=== PATIENT | female | born 1965 | race Hispanic/Latino ===

== ENCOUNTER → 2018-07-05 | Day surgery (SDC) | payer BC ==
--- NOTE | 2018-06-28 11:21 | Diagnostic Imaging Report ---
EXAMINATION: CHEST 2 VIEWS INDICATION: Pre-op COMPARISON: None FINDINGS: TUBES and LINES: None. LUNGS: Lungs are well inflated. Mild patchy bibasilar opacity, likely atelectasis. There is no evidence of pneumonia or pulmonary edema. PLEURA: No pleural effusion or pneumothorax. HEART AND MEDIASTINUM: The cardiomediastinal silhouette is unremarkable. BONES AND SOFT TISSUES: No acute osseous lesion. Soft tissues are unremarkable. UPPER ABDOMEN: No free air under the diaphragm. IMPRESSION: No acute radiographic abnormality. Signed by: Dr. Deanna López MD on 06/28/2018 11:18 AM
[2018-06-28 11:30] LABS: BASOPHILS # (AUTO) 0.1 (0.0-0.1); BASOPHILS % 0.4 % (0.0-1.0); EOSINOPHILS # (AUTO) 0.1 (0.0-0.4); EOSINOPHILS % 0.7 % (0.0-6.0); HEMOGLOBIN 15.8 g/dL (12.0-16.0); LYMPHOCYTES # (AUTO) 2.6 (1.0-3.2); MEAN CORPUSCULAR HGB CONC 33.6 g/dL (31-35); MEAN CORPUSCULAR VOLUME 92.3 fL (81-99); MONOCYTES # (AUTO) 0.5 (0.2-0.8); MONOCYTES % 4.1 % (4.4-11.3); NEUTROPHILS # (AUTO) 8.9 (2.1-6.9); NEUTROPHILS % 73.3 % (38.7-80.0); PLATELET COUNT 256 x10e3/uL (140-360); RED BLOOD COUNT 5.09 x10e6/uL (3.6-5.1); RED CELL DISTRIBUTION WIDTH 13.2 % (11.7-14.4)
[2018-06-28 11:57] LABS: ALANINE AMINOTRANSFERASE 51 IU/L (0-55); ALBUMIN 4.2 g/dL (3.5-5.0); ALBUMIN/GLOBULIN RATIO 1.1 (0.8-2.0); ALKALINE PHOSPHATASE 89 IU/L (40-150); BLOOD UREA NITROGEN 12 mg/dL (7-26); BUN/CREATININE RATIO 14 (6-25); CALCIUM 9.8 mg/dL (8.4-10.2); CARBON DIOXIDE 28 mmol/L (22-29); CHLORIDE 98 mmol/L (98-107); CREATININE, SERUM 0.87 mg/dL (0.57-1.11); EST GLOMERULAR FILTRATION RATE > 60 ML/MIN (60-); GLUCOSE 90 mg/dL (74-118); SODIUM 133 mmol/L (136-145)
[2018-06-28 11:59] LABS: CLARITY,URINE CLEAR (CLEAR); COLOR,URINE YELLOW (YELLOW); KETONES,URINE NEGATIVE (NEGATIVE); LEUKOCYTE ESTERASE ,URINE NEGATIVE (NEGATIVE); NITRITE,URINE NEGATIVE (NEGATIVE); PROTEIN,URINE DIPSTICK NEGATIVE (NEGATIVE)
[2018-06-28 12:00] LABS: BILIRUBIN,URINE NEGATIVE (NEGATIVE); URINE UROBILINOGEN 0.2 mg/dL (0.2 - 1)
[~2018-07-05] MED LIST: BUPIVACAINE 0.25%/EPI 30ML SDV INJ ONE; DEXAMETHASONE SOD PHOS INJ 4 MG/ML VIAL ONE; FENTANYL CITRATE/PF 100MCG/2 ML INJ ONE; GLYCOPYRROLATE INJ 1MG/ 5 ML SYR ONE; HYDROMORPHONE 2MG/ML 2 MG/ML ML ONE; LIDOCAINE HCL 2% LOCAL INJ 5 ML SDV VIAL INJ ONE; MIDAZOLAM HCL 2 MG/2 ML VIAL ONE; MULTIVITAMINS1 EAC7 PO; NEOSTIGMINE 5 MG/5ML SYR ONE; ONDANSETRON HCL INJ 2MG/ML 2ML 2 MG/ML VIAL ONE; PROPOFOL IV EMULSION 10 MG/ML 20 ML VIAL ONE; ROCURONIUM BROMIDE 10 MG/ML 5ML VIAL ONE; SEVOFLURANE INHAL SOLN 250 ML PEN BTL ONE
--- OUTSIDE RECORDS SUMMARY | 2018-07-05 09:37 | XMS REPORT ---
Author Author Bernardo Avila Organization eClinicalWorks Address Unknown Phone Unavailable Care Team Providers Care Supervisor Dried Yeast Name Role Phone Bernardo Avila CP Unavailable Allergies, Adverse Reactions, Alerts Substance Reaction Event Type N.K.D.A. Info Not Available Non Drug Allergy Encounters Encounter Location Date URINE [facility] May 03, [address] [facility] November 26, 2013 swelling in feet and legs [facility] November 15, 2013 Problems Problem Type Condition ICD-9 Code Onset Dates Condition Status Assessment Family hx of colon cancer V16.0 Active Assessment Smoker 305.1 Active Assessment Body Mass Index 32.0-32.9, adult V85.32 Active Assessment Family history of aortic valve disorder V17.49 Active Assessment Family history of breast cancer V16.3 Active Problem Family hx of colon cancer V16.0 Active Problem Family history of breast cancer V16.3 Active Problem Smoker 305.1 Active Assessment Edema 782.3 Active Assessment Hypertriglyceridemia 272.1 Active Problem DDD (degenerative disc disease) 722.6 Active Problem Hypertriglyceridemia 272.1 Active Medications Medication Code System Code Instructions Start Date End Date Status Dosage NO OTC meds taken Unknown 0 Active Unknown Social History Social History Element Qualifiers Date Reported children . 2 November 15, 2013 Tobacco Use: . Are you a: current smoker, How many packs per day? 1-2, How many years have you smoked? greater than 30 November 15, 2013 Use of recreational / street drugs? . Answer: No November 15, 2013 Do you have pets? . Status: No November 15, 2013 Marital Status: . November 15, 2013 Caffeine intake? . Status: Yes, What type: Soft Drinks November 15, 2013 Do you exercise? . Answer: No November 15, 2013 Do you drink alcohol? . Status: Yes, How often? 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 Avg Glu (eAG)(- mg/dL) 123 B-Type Natriuretic Peptide B-Type Natriuretic Peptide(-0.0-100.0 pg/mL) 8.0 TSH TSH(-0.450-4.500 uIU/mL) 1.700 CBC With Differential/Platelet MCHC(-31.5-35.7 g/dL) 32.1 MCH(-26.6-33.0 pg) 30.2 Platelets(-155-379 x10E3/uL) 253 RDW(-12.3-15.4 %) 14.0 Immature Granulocytes(-0-2 %) 0 Immature Grans (Abs)(-0.0-0.1 x10E3/uL) 0.0 Lymphs(-14-46 %) 27 Monocytes(-4-12 %) 6 Neutrophils(-40-74 %) 66 Neutrophils (Absolute)(-1.4-7.0 x10E3/uL) 4.7 Hematocrit(-34.0-46.6 %) 43.3 Lymphs (Absolute)(-0.7-3.1 x10E3/uL) 2.0 MCV(-79-97 fL) 94 RBC(-3.77-5.28 x10E6/uL) 4.61 Eos(-0-5 %) 1 Basos(-0-3 %) 0 Hemoglobin(-11.1-15.9 g/dL) 13.9 Baso (Absolute)(-0.0-0.2 x10E3/uL) 0.0 WBC(-3.4-10.8 x10E3/uL) 7.2 Monocytes(Absolute)(-0.1-0.9 x10E3/uL) 0.4 Eos (Absolute)(-0.0-0.4 x10E3/uL) 0.1 Urinalysis, Routine Protein(-Negative/Trace ) Negative WBC Esterase(-Negative ) Negative Appearance(-Clear ) Clear Urine-Color(-Yellow ) Yellow Occult Blood(-Negative ) 2+ Ketones(-Negative ) Negative Glucose(-Negative ) Negative Nitrite, Urine(-Negative ) Negative Microscopic Examination(- ) See below: WBC(-0 - 5 /hpf) 0-5 RBC(-0 - 2 /hpf) None seen pH(-5.0-7.5 ) 6.5 Specific [place](-1.005-1.030 ) 1.010 Bilirubin(-Negative ) Negative Urobilinogen,Semi-Qn(-0.0-1.9 mg/dL) 0.2 Bacteria(-None seen/Few ) Few Epithelial Cells (non renal)(-0 - 10 /hpf) 0-10 Mucus Threads(-Not Estab. ) Present Lipid Panel LDL Cholesterol Calc(-0-99 mg/dL) 128 VLDL Cholesterol Klaus(-5-40 mg/dL) 34 HDL Cholesterol(->39 mg/dL) 32 Triglycerides(-0-149 mg/dL) 168 Cholesterol, Total(-100-199 mg/dL) 194 Comp. Metabolic Panel (14) Creatinine, Serum(-0.57-1.00 mg/dL) 0.80 BUN(-6-24 mg/dL) 9 eGFR If Africn Am(- >59 mL/min/1.73) 100 eGFR If NonAfricn Am(- >59 mL/min/1.73) 87 Sodium, Serum(-134-144 mmol/L) 141 BUN/Creatinine Ratio(-9-23 ) 11 Chloride, Serum(-97-108 mmol/L) 104 Potassium, Serum(-3.5-5.2 mmol/L) 4.4 Carbon Dioxide, Total(-19-28 mmol/L) 25 Protein, Total, Serum(-6.0-8.5 g/dL) 6.9 Calcium, Serum(-8.7-10.2 mg/dL) 9.1 Globulin, Total(-1.5-4.5 g/dL) 2.7 Albumin, Serum(-3.5-5.5 g/dL) 4.2 Bilirubin, Total(-0.0-1.2 mg/dL) 0.2 Glucose, Serum(-65-99 mg/dL) 89 A/G Ratio(-1.1-2.5 ) 1.6 ALT (SGPT)(-0-32 IU/L) 20 Alkaline Phosphatase, S(-39-117 IU/L) 81 AST (SGOT)(-0-40 IU/L) 21 Summary Purpose eClinicalWorks Submission
--- OUTSIDE RECORDS SUMMARY | 2018-07-05 09:37 | XMS REPORT ---
Author Author John Avila Organization eClinicalWorks Address Unknown Phone Unavailable Care Team Providers Care All Source Intelligence Technician Name Role Phone John Avila CP Unavailable Encounters Encounter Location Date ECHO/JOHN [facility] November 19, 2013 URINE [facility] May 03, 2013 New Referral Request [facility] November 26, 2013 swelling in feet and legs [facility] November 15, 2013 Problems Problem Type Condition ICD-9 Code Onset Dates Condition Status Problem Family hx of colon cancer V16.0 Active Problem Family history of breast cancer V16.3 Active Problem Smoker 305.1 Active Assessment Edema 782.3 Active Problem DDD (degenerative disc disease) 722.6 Active Problem Hypertriglyceridemia 272.1 Active Social History Social History Element Qualifiers Date [...] November 15, 2013 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
--- OUTSIDE RECORDS SUMMARY | 2018-07-05 09:37 | XMS REPORT | Continuity of Care Document ---
Author Author [facility] Interface Address Unknown Phone Unavailable Problems Problem Status Onset Date Classification Date Reported Comments Source US ABDOMEN DX: MICRO HEMATURIA Active 05/31/2018 [facility] Encounter for screening mammogram for breast cancer Active Diagnosis 06/24/2018 [facility] Routine general medical examination at a health care facility Active Diagnosis 06/24/2018 [facility] High cholesterol Active Problem 06/30/2018 [facility] Gallstones Active Problem 06/30/2018 [facility] Prediabetes Active Problem 06/30/2018 [facility] Family history of bowel cancer Active Problem 06/30/2018 [facility] Disc narrowing Active Problem 06/30/2018 [facility] Family history of breast cancer Active Problem 06/30/2018 [facility] Tobacco use disorder Active Problem 06/30/2018 [facility] Microhematuria Active Diagnosis 06/30/2018 [facility] Encounter for screening colonoscopy Active Diagnosis 06/24/2018 [facility] Hypertriglyceridemia Active Problem 01/28/2014 [facility] UTI Active Diagnosis 05/07/2013 [facility] DDD Active Problem 01/28/2014 [facility] Bilateral low back pain without sciatica, unspecified chronicity Active Diagnosis 06/30/2018 [facility] Rib pain on right side Active Diagnosis 06/30/2018 [facility] Routine physicl lab exam Active Diagnosis 06/30/2018 [facility] Cough Active Diagnosis 06/30/2018 [facility] Family hx of colon cancer Active Problem 01/28/2014 [facility] Family history of breast cancer Active Problem 01/28/2014 [facility] Smoker Active Problem 01/28/2014 [facility] Edema Active Diagnosis 01/28/2014 [facility] Body Mass Index 32.0-32.9, adult Active Diagnosis 12/12/2013 [facility] Family history of aortic valve disorder Active Diagnosis 12/12/2013 [facility] Medications Medication Details Route Status Patient Instructions Ordering Provider Order Date Source Bromfed DM 10 ml Orally Active 30-2-10 MG/5ML Orally every 4 hrs prn Akshat Archuleta 05/31/2018 [facility] Flexeril 1 tablet Orally Active 10 mg Orally three times a day (tid) as needed (prn) Akshat Archuleta 05/31/2018 [facility] Levaquin 1 tablet Orally Active 500 mg Orally Once a day Oden Archuleta 05/31/2018 [facility] Cipro 1 tablet Orally Active 500 mg Orally every 12 hrs [place] 05/03/2013 [facility] NO OTC meds taken Unknown NA Active [facility] NO OTC meds taken not defined NA Active Akshat Archuleta [facility] NO OTC meds taken Unknown NA Active [facility] Allergies, Adverse Reactions, Alerts Substance Category Reaction Severity Reaction type Status Date Reported Comments Source N.K.D.A. Adverse Reaction Info Not Available Adverse Reaction Active 06/19/2018 [facility] Immunizations Immunization Date Given Site Status Last Updated Comments Source Results Order Name Results Value Reference Range Date Interpretation Comments Source Abdomen/Pelvis w/wo IV contrast CT Abdomen/Pelvis w/wo IV contrast CT EXAM: CT ABDOMEN AND PELVIS WITH AND WITHOUT CONTRAST UROGRAM DATE: 07/03/2018 14:15 ENGINE BUILDUP MECHANIC INDICATION: - hematuria ADDITIONAL INFORMATION: None. COMPARISON: None. TECHNIQUE: Volumetric CT of the abdomen and pelvis is acquired prior to and following the intravenous administration of contrast. Axial, coronal and sagittal images are provided. IV contrast: 100 mL Omnipaque 300 Enteric contrast: None. DLP: 2788 mGy-cm FINDINGS: Lines, tubes and hardware: None. Lower thorax: Coronary artery calcifications are present. Small 4 mm nonspecific nodule in the right middle lobe (series 2, image 11). Liver: Normal. Biliary tree: No intra- or extrahepatic biliary ductal dilation. Gallbladder: Gallstones identified. No inflammation. Pancreas: Normal. Spleen: Normal. Adrenals: Normal. Kidneys and ureters: 1.4 cm left renal cyst. No renal or ureteral stones are present. Bladder: Normal. Reproductive organs: Uterus and adnexa are unremarkable. Gastrointestinal tract: Stomach: Normal. Small bowel: Normal. Colon: Uninflamed diverticula. Appendix: Normal. Peritoneum, mesentery and retroperitoneum: No free air, ascites or loculated fluid. Lymph nodes: Normal. Vasculature: Aorta and branches: Vascular calcifications. IVC and veins: Normal. Portal vasculature: Normal. Bones: No acute abnormality. Age-related degenerative findings. Soft tissues: Normal. IMPRESSION: 1. Small left renal cyst. 2. Cholelithiasis without evidence of acute cholecystitis. 3. Aortic and coronary artery atherosclerotic disease. 4. Nonspecific 4 mm right middle lobe pulmonary nodule. No further follow-up is required. 07/03/2018 - - Read by: Francisco Shoemaker MD Dictated Date/time: 07/03/18 15:39 Electronically Signed by: Francisco Shoemaker MD 07/03/18 15:52 FINAL REPORT [facility] Abdomen complete US Abdomen complete US Exam: Abdomen complete US Clinical Indication: - microhematuria. Comparison: None. TECHNIQUE: Grayscale and limited color sonographic evaluation of the abdomen was performed with standard technique. FINDINGS: LIVER: The visualized liver shows normal contour. There is normal liver size, based on sonography. Diffuse heterogeneous increased echotexture of the liver parenchyma with posterior acoustic attenuation is consistent with fatty infiltration. The main portal vein is patent with hepatopedal flow. Main portal vein measures 0.7 cm in diameter. BILE DUCTS: The intrahepatic and extrahepatic bile ducts are not dilated with the common bile duct measuring 5 mm. The distal common bile duct is not well seen. GALLBLADDER: Multiple echogenic shadowing gallstones are present in the gallbladder. No significant gallbladder wall thickening or pericholecystic fluid. The academic success coordinator does not report a sonographic Cox's sign. PANCREAS: The visualized pancreas appears unremarkable. SPLEEN: The spleen is unremarkable and measures 12.3 cm. KIDNEYS: The right kidney measures 10.7 cm. The left kidney measures 12.1 cm. There is normal renal contour and morphology, with normal parenchymal echotexture. No echogenic foci/nephrolithiasis identified. There is no hydronephrosis. AORTA, COMMON ILIAC ARTERIES AND INFERIOR VENA CAVA: The visualized abdominal aorta, common iliac arteries and inferior vena cava appear unremarkable. ASCITES: There is no significant abdominal ascites. IMPRESSION: 1. Cholelithiasis without evidence of acute cholecystitis. 2. Hepatic steatosis. 3. Remainder of abdomen ultrasound is unremarkable. SL: [id number] 06/01/2018 - - Read by: Umesh Waller MD Dictated Date/time: 06/01/18 18:50 Electronically Signed by: Umesh Waller MD 06/01/18 18:52 FINAL REPORT [facility] Vital Signs Vital Sign Value Date Comments Source Weight 195 06/19/2018 [facility] Height 65 06/19/2018 [facility] Heart Rate 68 06/19/2018 [facility] Diastolic (mm Hg) 80 06/19/2018 [facility] Systolic (mm Hg) 140 06/19/2018 [facility] Weight 201 05/31/2018 [facility] Height 65 05/31/2018 [facility] Heart Rate 67 05/31/2018 [facility] Diastolic (mm Hg) 86 05/31/2018 [facility] Systolic (mm Hg) 130 05/31/2018 [facility] Weight 198 11/15/2013 [facility] Height 65 11/15/2013 [facility] Heart Rate 88 11/15/2013 [facility] Diastolic (mm Hg) 88 11/15/2013 [facility] Systolic (mm Hg) 142 11/15/2013 [facility] Weight 196 05/03/2013 [facility] Height 65 05/03/2013 [facility] Temperature Oral (F) 98.6 F 05/03/2013 [facility] Heart Rate 64 05/03/2013 [facility] Diastolic (mm Hg) 74 05/03/2013 [facility] Systolic (mm Hg) 126 05/03/2013 [facility] Encounters Location Location Details Encounter Type Encounter Number Reason For Visit Attending Provider ADM Date DC Date Status Source [facility] URINE [id number] 05/03/2013 05/03/2013 [facility] URINE [id number] 05/03/2013 05/03/2013 [facility] URINE [id number] 05/03/2013 05/03/2013 [facility] URINE [id number] 05/03/2013 05/03/2013 [facility] swelling in feet and legs [id number] 11/15/2013 11/15/2013 [facility] swelling in feet and legs [id number] 11/15/2013 11/15/2013 [facility] swelling in feet and legs [id number] 11/15/2013 11/15/2013 [facility] REGGIE/JOHN [id number] 11/19/2013 11/19/2013 [facility] New Referral Request [id number] 11/26/2013 11/26/2013 [facility] New Referral Request [id number] 11/26/2013 11/26/2013 [facility] New Referral Request [id number] 11/26/2013 11/26/2013 [facility] Procedures Procedure Code Date Perfomer Comments Source
--- OUTSIDE RECORDS SUMMARY | 2018-07-05 09:37 | XMS REPORT ---
Author Author Christina Blake [facility] eClinicalWorks Address Unknown Phone Unavailable Care Team Providers Care Meat Soaker Name Role Phone Christina Blake CP Unavailable Allergies, Adverse Reactions, Alerts Substance Reaction Event Type N.K.D.A. Info Not Available Non Drug Allergy Problems Problem Type Condition Code Onset Dates Condition Status Assessment Bilateral low back pain without sciatica, unspecified chronicity M54.5 Active Assessment Rib pain on right side R07.81 Active Assessment Microhematuria R31.29 Active Assessment Routine physicl lab exam Z00.00 Active Assessment Cough R05 Active Problem High cholesterol E78.00 Active Problem Gallstones K80.20 Active Problem Prediabetes R73.03 Active Problem Family history of bowel cancer Z80.0 Active Problem Disc narrowing M99.79 Active Problem Family history of breast cancer Z80.3 Active Problem Tobacco use disorder F17.200 Active Medications Medication Code System Code Instructions Start Date End Date Status Dosage Levaquin NDC 99839198167 500 mg Orally Once a day May 31, 2018 Jun 07, 2018 Active 1 tablet Bromfed DM NDC 90395317076 30-2-10 MG/5ML Orally every 4 hrs prn May 31, 2018 Jun 30, 2018 Active 10 ml NO OTC meds taken NDC 0 Active not defined Flexeril NDC 0 10 mg Orally three times a day (tid) as needed (prn) May 31, 2018 Jun 30, 2018 Active 1 tablet Vital Signs Date/Time: May 31, 2018 BMI 33.44 Index Weight 201 lbs Height 65 in Cardiac Monitoring Heart Rate 67 /min Blood Pressure Diastolic 86 mm Hg Blood Pressure Systolic 130 mm Hg Results Name Result Date Reference Range Unit Abnormality Flag TSH ----TSH 2.290 20180601 0.450-4.500 uIU/mL Hemoglobin A1c ----Hemoglobin A1c 5.9 20180601 4.8-5.6 % H Urine Culture, Routine ----Urine Culture, Routine Final report [id number] ----Result 1 No growth [id number] Comp. Metabolic Panel (14) ----Sodium 143 20180601 134-144 mmol/L ----BUN/Creatinine Ratio 15 20180601 9-23 ----Chloride 103 20180601 96-106 mmol/L ----Potassium 4.6 20180601 3.5-5.2 mmol/L ----Calcium 9.1 20180601 8.7-10.2 mg/dL ----Protein, Total 6.9 20180601 6.0-8.5 g/dL ----Carbon Dioxide, Total 25 20180601 20-29 mmol/L ----A/G Ratio 1.6 20180601 1.2-2.2 ----eGFR If NonAfricn Am 84 20180601 >59 mL/min/1.73 ----Bilirubin, Total 0.3 20180601 0.0-1.2 mg/dL ----eGFR If Africn Am 97 20180601 >59 mL/min/1.73 ----BUN 12 20180601 6-24 mg/dL ----Albumin 4.2 20180601 3.5-5.5 g/dL ----Globulin, Total 2.7 20180601 1.5-4.5 g/dL ----Creatinine 0.80 20180601 0.57-1.00 mg/dL ----ALT (SGPT) 26 20180601 0-32 IU/L ----Glucose 89 20180601 65-99 mg/dL ----Alkaline Phosphatase 101 20180601 39-117 IU/L ----AST (SGOT) 26 20180601 0-40 IU/L Ribs Unil 2 View- Right Xray Lumbar AP/LAT Xray Chest 2 views- Xray CBC With Differential/Platelet ----RDW 13.8 20180601 12.3-15.4 % ----MCHC 33.8 20180601 31.5-35.7 g/dL ----MCH 30.9 20180601 26.6-33.0 pg ----MCV 91 20180601 79-97 fL ----Hematocrit 42.3 20180601 34.0-46.6 % ----Hemoglobin 14.3 20180601 11.1-15.9 g/dL ----Immature Granulocytes 0 20180601 Not Estab. % ----RBC 4.63 20180601 3.77-5.28 x10E6/uL ----WBC 7.0 20180601 3.4-10.8 x10E3/uL ----Immature Grans (Abs) 0.0 20180601 0.0-0.1 x10E3/uL ----Eos (Absolute) 0.1 20180601 0.0-0.4 x10E3/uL ----Basos 0 20180601 Not Estab. % ----Baso (Absolute) 0.0 20180601 0.0-0.2 x10E3/uL ----Neutrophils (Absolute) 4.5 20180601 1.4-7.0 x10E3/uL ----Lymphs (Absolute) 1.9 20180601 0.7-3.1 x10E3/uL ----Monocytes(Absolute) 0.4 20180601 0.1-0.9 x10E3/uL ----Neutrophils 65 20180601 Not Estab. % ----Lymphs 27 20180601 Not Estab. % ----Monocytes 6 20180601 Not Estab. % ----Eos 2 20180601 Not Estab. % ----Platelets 224 20180601 150-379 x10E3/uL URINE AUTO W/O SCOPE ----Ketones neg 20180610 ----Blood mod++ 20180610 ----Urobilinogen 0.2 20180610 ----Protein neg 20180610 ----Nitrite neg 20180610 ----pH 6.0 20180610 ----Bili neg 20180610 ----Spec [place] 1.010 20180610 ----Turbidity clear 20180610 ----Glucose neg 20180610 ----Leuk Est neg 20180610 ----Color yellow 20180610 Lipid Panel ----HDL Cholesterol 35 32734028 >39 mg/dL L ----Triglycerides 194 77797786 0-149 mg/dL H ----LDL Cholesterol Calc 120 42421674 0-99 mg/dL H ----VLDL Cholesterol Klaus 39 20180601 5-40 mg/dL ----Cholesterol, Total 194 13585643 100-199 mg/dL Summary Purpose eClinicalWorks Submission
--- OUTSIDE RECORDS SUMMARY | 2018-07-05 09:37 | XMS REPORT ---
Author Author Donna You [facility] eClinicalWorks Address Unknown Phone Unavailable Care Team Providers Care Auto Mechanic Name Role Phone Donna You Unavailable Encounters Encounter Location Date URINE [facility] May 03, 2013 Problems Problem Type Condition ICD-9 Code Onset Dates Condition Status Problem Hypertriglyceridemia 272.1 Active Assessment UTI (lower urinary tract infection) 599.0 Active Problem DDD (degenerative disc disease) 722.6 Active Medications Medication Code System Code Instructions Start Date End Date Status Dosage Cipro ILC [address]-00 500 mg Orally every 12 hrs May 03, 2013 May 08, 2013 Active 1 tablet NO OTC meds taken MULTUM 15986 Active Unknown Social History Social History Element Qualifiers Date Reported children . 2 May 03, 2013 Tobacco Use: . Are you a: current smoker, How many packs per day? 1-2, How many years have you smoked? greater than 30 May 03, 2013 Marital Status: . 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
--- OUTSIDE RECORDS SUMMARY | 2018-07-05 09:37 | XMS REPORT ---
Author Author [facility] Address Unknown Phone Unavailable Care Team Providers Care Advanced Manager Name Role Phone Tay HOPKINS Unavailable Unavailable Problems This patient has no known problems. Allergies, Adverse Reactions, Alerts This patient has no known allergies or adverse reactions. Medications This patient has no known medications. Results Test Description Test Time Test Comments Text Results Atomic Results Result Comments CHEST 2 VIEWS 2018-06-28 11:14:00 [place] [id number] Patient Name: JAVED SUAREZ MR #: [id number] : 1965 Age/Sex: 53/F Req #: [id number] Adm Physician: Ordered by: KUSH HOPKINS MD Report #: [id number] Location: OR Room/Bed: Procedure: [id number] DX/CHEST 2 VIEWS Exam Date: 06/28/18 Exam Time: 1100 REPORT STATUS: Signed EXAMINATION: CHEST 2 VIEWS INDICATION: Pre-op COMPARISON: None FINDINGS: TUBES and LINES: None. LUNGS: Lungs are well inflated. Mild patchy bibasilar opacity, likely atelectasis. There is no evidence of pneumonia or pulmonary edema. PLEURA: No pleural effusion or pneumothorax. HEART AND MEDIASTINUM: The cardiomediastinal silhouette is unremarkable. BONES AND SOFT TISSUES: No acute osseous lesion. Soft tissues are unremarkable. UPPER ABDOMEN: No free air under the diaphragm. IMPRESSION: No acute radiographic abnormality. Signed by: Dr. Rui Ramirez MD on 06/28/2018 11:18 AM Dictated By: RUI RAMIREZ MD 111 Transcribed By: LURDES on 06/28/181117 COPY TO: KUSH HOPKINS MD
--- OUTSIDE RECORDS SUMMARY | 2018-07-05 09:37 | XMS REPORT | Summary of Care ---
Author Author KATHIE VÁSQEUZ D.O. Unknown Address Unknown Phone Unavailable Care Team Providers Care Ingot Buggy Operator Name Role Phone KATHIE VÁSQUEZ DO Itzel Unavailable Unavailable TANVIR CHAPARRO DO Unavailable Unavailable Functional Status Name Dates Details Functional status health issues are not documented Status: Name Dates Details Cognitive status health issues are not documented Status: Problems Name Dates Details Microhematuria (599.72, R31.29) Status: Active Urinary frequency (788.41, R35.0) Status: Active Urinary urgency (788.63, R39.15) Status: Active Medications Name Dates Details No Reported Medications R.N. Active Allergies and Adverse Reactions Name Dates Details No Known Allergies (Allergy) Status: Active Past Medical History Name Dates Details History of degenerative disc disease (V13.59, Z87.39) Status: Resolved History of Hypertriglyceridemia (272.1, E78.1) Status: Resolved History of vitamin D deficiency (V12.1, Z86.39) Status: Resolved Procedures Procedure Dates Details CT Abdomen/Pelvis w/wo contrast [id number] Date: 28-Jun-2018 History of Section Completed History of Cervical cryosurgery Completed History of Urethral dilation Completed Immunization Name Dates Details Immunizations not documented Family History Name Dates Details Family history of colon cancer (V16.0, Z80.0) Status: Active Family history of throat cancer (V16.0, Z80.0) Status: Active Family history of malignant neoplasm of vulva (V16.49, Z80.49) Status: Active Family history of malignant neoplasm of breast (V16.3, Z80.3) Status: Active Name Dates Details Family history of Aneurysm (442.9, I72.9) Status: Active Name Dates Details Family history of colon cancer (V16.0, Z80.0) Status: Active Name Dates Details Family history of colon cancer (V16.0, Z80.0) Status: Active Family history of malignant neoplasm of vulva (V16.49, Z80.49) Status: Active Family history of malignant neoplasm of breast (V16.3, Z80.3) Status: Active Name Dates Details Family history of throat cancer (V16.0, Z80.0) Status: Active Social History Name Dates Details - Status: Name Dates Details Light tobacco smoker Vital Signs Date Test Result Details [id number] BP Systolic 157 mm[Hg] Status: Comments: Location: [facility]; Position: Sitting BP Diastolic 95 mm[Hg] Status: Comments: Location: E; Position: Sitting Weight 192.25 lb Status: Height 65 in Status: Body Mass Index Calculated 31.99 kg/m2 Status: Body Surface Area Calculated 1.95 m2 Status: Temperature 98.3 f Status: Comments: Method: Oral Heart Rate 79 /min Status: Results Date Description Value Details 90-[id number]:00 [[facility]] URINALYSIS, COMPLETE UA Color Ltyellow UA Turbidity Clear Range: Clear UA Spec Grav 1.004 Range: <=1.030 UA pH 6.0 Range: 5.0-8.0 UA Protein Negative Range: Negative UA Glucose Negative Range: Negative UA Ketones Negative Range: Negative UA Bili Negative Range: Negative UA Blood Moderate (Abnormal) Range: Negative UROBILINOGEN <=1.0 mg/dl Range: 0.1-1.0 UA Nitrite Negative Range: Negative UA Leuk Est Negative Range: Negative UA RBC 9 {/HPF} (Above high threshold) Range: 0-2 UA WBC <1 {/HPF} Range: 0-5 UA Bacteria Occasional {/HPF} Range: None Seen UA Sq Epi Occasional {/LPF} Range: Few Urine Calcium Oxalate Crystal Occasional {/HPF} Range: None Seen 12-Sqb-25678:00 [[facility]] CULTURE, URINE, ROUTINE Comments: Source: Urine, Clean CatchBody Site: FINAL REPORT No Growth Plan of Care Name Dates Details Planned Observations Planned Goals not documented Instructions Name Dates Details Instructions not documented Encounters Appointment; KATHIE VÁSQUEZ D.O. Encounter Diagnosis: Problem not documented On: 28-Jun-2018 9:00
--- OUTSIDE RECORDS SUMMARY | 2018-07-05 09:37 | XMS REPORT ---
Author Author Christina Sheffield [facility] [employer] Address Unknown Phone Unavailable Care Team Providers Care Military Exchange Wireless Manager Name Role Phone Christina Sheffield Unavailable Encounters Encounter Location Date URINE [facility] May 03, 2013 New Referral Request [facility] November 26, 2013 swelling in feet and legs 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
--- OUTSIDE RECORDS SUMMARY | 2018-07-05 09:37 | XMS REPORT ---
Author Author Benrardo Avila Organization [employer] Address Unknown Phone Unavailable Care Team Providers Care Auto Glass Installer Name Role Phone Bernardo Avila CP Unavailable Allergies, Adverse Reactions, Alerts Substance Reaction Event Type N.K.D.A. Info Not Available Non Drug Allergy Problems Problem Type Condition Code Onset Dates Condition Status Assessment Encounter for screening mammogram for breast cancer Z12.31 Active Assessment Routine general medical examination at a health care facility Z00.00 Active Problem High cholesterol E78.00 Active Problem Gallstones K80.20 Active Problem Prediabetes R73.03 Active Problem Family history of bowel cancer Z80.0 Active Problem Disc narrowing M99.79 Active Problem Family history of breast cancer Z80.3 Active Problem Tobacco use disorder F17.200 Active Assessment Tobacco use disorder F17.200 Active Assessment High cholesterol E78.00 Active Assessment Microhematuria R31.29 Active Assessment Prediabetes R73.03 Active Assessment Gallstones K80.20 Active Assessment Encounter for screening colonoscopy Z12.11 Active Medications Medication Code System Code Instructions Start Date End Date Status Dosage Bromfed DM NDC [id number] 30-2-10 MG/5ML Orally every 4 hrs prn May 31, 2018 Jun 30, 2018 Active 10 ml Flexeril NDC 0 10 mg Orally three times a day (tid) as needed (prn) May 31, 2018 Jun 30, 2018 Active 1 tablet Vital Signs Date/Time: Jun 19, 2018 BMI 32.45 Index Weight 195 lbs Height 65 in Cardiac Monitoring Heart Rate 68 /min Blood Pressure Diastolic 80 mm Hg Blood Pressure Systolic 140 mm Hg Results No Known Results Summary Purpose [employer] Submission
--- NOTE | 2018-07-05 14:38 | Operative Report ---
DATE OF PROCEDURE: July 05, 2018 PREOPERATIVE DIAGNOSIS: Cholecystitis and cholelithiasis. POSTOPERATIVE DIAGNOSIS: Cholecystitis and cholelithiasis. OPERATION PERFORMED: Laparoscopic cholecystectomy. MOTOR ADJUSTER: Dr. Segundo Donahue ANESTHESIA: General endotracheal. COMPLICATIONS: None. ESTIMATED BLOOD LOSS: Minimal. DESCRIPTION OF PROCEDURE: With the patient lying in bed in the supine position under good general endotracheal anesthesia, the abdomen was prepped with Betadine solution and draped in the usual manner. A Veress needle was introduced into the umbilicus and pneumoperitoneum was established without any difficulty. An 11-mm trocar was placed into the umbilicus and a 10 mm video laparoscope was placed into the intra-abdominal cavity. Under direct vision, three 5-mm trocars were placed in the right subcostal region. Video laparoscopy at this point revealed the duodenum to be stuck to the lower half of the gallbladder. There was some fatty infiltration of the liver. Otherwise, the rest of the abdominal exploration was within normal limits. The duodenum was then and carefully from the gallbladder. After this was done, the peritoneum overlying the neck of the gallbladder was then opened and the cystic duct was identified. Cystic duct was followed to its junction with the common duct. Cystic duct was then circumferentially dissected away from the common duct, doubly clipped and divided. The cystic artery was similarly doubly clipped and divided. The gallbladder was then slowly and carefully taken off the liver bed using the cautery scissors and perfect hemostasis was ascertained. The gallbladder was placed in a pouch and removed through the umbilicus without any difficulty. Video laparoscopy was then again carried out. The liver bed was found to be perfectly dry. All of the excess fluid was aspirated. The pneumoperitoneum was evacuated and all the trocars were removed under direct vision. The midline fascia at the umbilicus was then closed with a figure-of-8 of 0 Vicryl. All layers were infiltrated on the way out with solution of 0.25% Marcaine. Subcutaneous tissue was approximated with 3-0 Vicryl and the skin was closed with subcuticular 5-0 Vicryl. Benzoin, Steri-Strips and Band-Aids were applied. The sponge, lap and needle count was correct. The patient tolerated the procedure well and returned to the recovery room in stable condition. Job#: [id number]
[2018-07-05 15:15] VITALS: BP 147/81
== END | disposition home or self-care (01) ==
LOC: OR 09:34
PROVIDERS: ATTEND Surgery
DX: K80.10 Calculus of gallbladder with chronic cholecystitis without obstruction (principal); K76.0 Fatty (change of) liver, not elsewhere classified; F17.210 Nicotine dependence, cigarettes, uncomplicated; Z01.810 Encounter for preprocedural cardiovascular examination; Z01.812 Encounter for preprocedural laboratory examination; Z01.818 Encounter for other preprocedural examination
CPT/HCPCS: 36415 ×2; 47562; 71046; 80053; 81003; 84702; 85025; 88304; 93005; C1766; J1100; J1170; J2001; J2250; J2405; J2704; J3490